=== PATIENT | female | born 1965 | race Caucasian/White ===

== ENCOUNTER 2021-12-17 05:00 | Emergency (ER) | payer OTHER ==
[2021-12-17 05:37] LABS: RED BLOOD COUNT 4.83 M/UL (4.00-5.10); WHITE BLOOD COUNT 8.5 K/UL (4.5-11.0)
[2021-12-17 06:10] LABS: BUN/CREATININE RATIO 22 (0-10)
== END 2021-12-17 12:52 | disposition home or self-care (01) ==
LOC: ER1 05:00
PROVIDERS: Family Medicine
DX: R47.01 Aphasia (principal); R91.8 Other nonspecific abnormal finding of lung field; Z20.822 Contact with and (suspected) exposure to COVID-19
CPT/HCPCS: 70450; 70496; 70498; 71045; 80053; 81001; 82550; 82553; 83874; 84484; 85025; 85610; 85652; 85730; 86140; 99285; Q9967; U0002